=== PATIENT | male | born 1985 | race Caucasian/White ===

== ENCOUNTER 2020-12-27 12:25 | Emergency (ER) | payer OTHER ==
[2020-12-27] MEDS ORDERED: PERCOCET 5-3251 EACH PO (14:52)
== END 2020-12-27 15:20 | disposition home or self-care (01) ==
LOC: ER1 12:25
DX: S82.52XA Displaced fracture of medial malleolus of left tibia, initial encounter for closed fracture (principal); W01.0XXA Fall on same level from slipping, tripping and stumbling without subsequent striking against object, initial encounter
CPT/HCPCS: 73610; 99283